=== PATIENT | male | born 1945 | race Caucasian/White ===

== ENCOUNTER 2017-09-25 08:23 | Day surgery (SDC) | payer OTHER ==
[2017-09-25 09:01] VITALS: BMI 28.6
[2017-09-25] MEDS ORDERED: LIDOCAINE HCL/PF 2% SDV 5ML VIAL ONE (09:08)
[2017-09-25] MEDS ORDERED: PROPOFOL 20 ML ONE ×2 (09:08)
[2017-09-25 09:52] VITALS: TEMP 98.2
[2017-09-25 10:34] VITALS: BP 116/80; PULSE 78
--- NOTE | 2017-09-27 09:34 | PATH ---
Surgical Pathology Report Patient Name: HOLLY JOSEPH [facility]. Rec. #: [id number] /Age/Gender: 1945 (Age: 72) / M Account: [id number] Location: [facility]-ENDOSCOPY Taken: 09/25/2017 Received: 09/25/2017 Reported: 09/27/2017 Physicians: Blaise Guzman D.O. Specimen(s) Received HOT SMALL MID TRANSVERSE COLON POLYP Clinical History Screening Postoperative diagnosis: Diverticulosis, mid transverse colon polyps, hemorrhoids Final Diagnosis MID TRANSVERSE COLON, POLYP, BIOPSY: HYPERPLASTIC POLYP. Electronically Signed Judith Rivera M.D. Gross Description Received in formalin, labeled "mid transverse polyp" is a morton, irregular portion of soft tissue measuring 0.3 cm. in greatest dimension. The specimen is submitted in toto in one cassette. /09/25/201709/25/2017
== END 2017-09-25 10:35 | disposition home or self-care (01) ==
LOC: JASU-ENDO 08:23
PROVIDERS: ATTEND Internal Medicine Gastroenterology
PROC: 0DBL8ZX Excision of Transverse Colon, Via Natural or Artificial Opening Endoscopic, Diagnostic (ICD-10-PCS; principal; 2017-09-25 10:30)
DX: Z12.11 Encounter for screening for malignant neoplasm of colon (principal); Z80.0 Family history of malignant neoplasm of digestive organs; K57.30 Diverticulosis of large intestine without perforation or abscess without bleeding; D12.3 Benign neoplasm of transverse colon; K64.8 Other hemorrhoids
CPT/HCPCS: 88305-TC

== ENCOUNTER → 2017-10-02 | Day surgery (SDC) | payer OTHER ==
[~2017-10-02] MED LIST: PROPOFOL 20 ML ONE
[2017-10-02 08:29] VITALS: BMI 28.6
[2017-10-02 10:54] VITALS: TEMP 97.7
[2017-10-02 12:41] VITALS: BP 146/75; PULSE 60
--- NOTE | 2017-10-03 16:14 | PATH ---
Surgical Pathology Report Patient Name: HOLLY JOSEPH [facility]. Rec. #: [id number] /Age/Gender: 1945 (Age: 72) / M Account: [id number] Location: [facility]-ENDOSCOPY Taken: 10/02/2017 Received: 10/02/2017 Reported: 10/03/2017 Physicians: Blaise Guzman D.O. Specimen(s) Received A: BX DUODENUM B: BX GASTRIC POLYP C: BX BODY FUNDUS D: BX GE JUNCTION Clinical History GERD Postoperative diagnosis: Hiatal hernia, gastritis, duodenitis, gastric polyp, duodenal bulb polyp Final Diagnosis A. DUODENAL BULB POLYP, BIOPSY: DUODENAL MUCOSA WITH CHRONIC INFLAMMATION AND KIM'S GLAND HYPERPLASIA. B. GASTRIC POLYP, BIOPSY: GASTRIC MUCOSA WITH ACTIVE CHRONIC GASTRITIS AND LYMPHOID FOLLICLE. 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 C. BODY/FUNDUS, BIOPSY: GASTRIC MUCOSA WITH ACTIVE CHRONIC GASTRITIS AND LYMPHOID AGGREGATE. 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 D. GE JUNCTION, BIOPSY: GASTROESOPHAGEAL JUNCTIONAL MUCOSA SHOWING ACTIVE CHRONIC INFLAMMATION, WITH FEATURES SUGGESTIVE OF REFLUX ESOPHAGITIS. Electronically Signed Sylvie Montoya M.D. Gross Description A. Received in formalin, labeled "biopsy duodenal bulb polyp" is a morton, irregular portion of soft tissue measuring 0.2 cm. in greatest dimension. The specimen is submitted in toto in one cassette. B. Received in formalin, labeled "biopsy gastric polyp" is a morton, irregular portion of soft tissue measuring 0.4 cm. in greatest dimension. The specimen is submitted in toto in one cassette. C. Received in formalin, labeled "biopsy body/fundus" are 4 morton, irregular portions of soft tissue ranging from 0.2-0.5 cm. in greatest dimension. The specimens are submitted in toto in one cassette. D. Received in formalin, labeled "biopsy GE junction" are 3 morton, irregular portions of soft tissue ranging from 0.2-0.4 cm. in greatest dimension. The specimens are submitted in toto in one cassette. 10/02/201710/02/2017
== END | disposition home or self-care (01) ==
LOC: JASU-ENDO 06:20
PROVIDERS: ATTEND Internal Medicine Gastroenterology
PROC: 0DB68ZX Excision of Stomach, Via Natural or Artificial Opening Endoscopic, Diagnostic (ICD-10-PCS; 2017-10-02)
PROC: 0DB28ZX Excision of Middle Esophagus, Via Natural or Artificial Opening Endoscopic, Diagnostic (ICD-10-PCS; 2017-10-02)
PROC: 0DB48ZX Excision of Esophagogastric Junction, Via Natural or Artificial Opening Endoscopic, Diagnostic (ICD-10-PCS; 2017-10-02)
PROC: 0DB98ZX Excision of Duodenum, Via Natural or Artificial Opening Endoscopic, Diagnostic (ICD-10-PCS; principal; 2017-10-02 10:45)
DX: K21.9 Gastro-esophageal reflux disease without esophagitis (principal); K29.70 Gastritis, unspecified, without bleeding; K44.9 Diaphragmatic hernia without obstruction or gangrene; K31.7 Polyp of stomach and duodenum; K29.80 Duodenitis without bleeding
CPT/HCPCS: 82962; 88305-TC; 88342-TC

== ENCOUNTER 2023-04-25 16:00 | Inpatient (IN) | payer OTHER ==
[2023-04-25 18:01] LABS: BASO % 0.2 % (0-2.0); EOS % 1.2 % (0-4.5); HEMATOCRIT 46.6 % (35.4-49); HEMOGLOBIN 15.6 GM/dL (11.7-16.9); LYMPH % 7.1 % (8-40); MCH 30.5 pg (25.7-33.7); MCHC 33.5 g/dl (32.0-35.9); MEAN CELL VOLUME 91.1 fl (80-96); MEAN PLT VOLUME 7.6 fl (7.5-11.1); MONO % 7.5 % (3.8-10.2); PLATELET COUNT 218 10^3/uL (134-434); RBC 5.11 M/mm3 (4.00-5.60); RDW 14.3 % (11.9-15.9); WHITE BLOOD COUNT 7.3 K/mm3 (4.0-10.0)
[2023-04-25 18:08] LABS: EPI CELLS 1 /uL (0-25.1); HYALINE CASTS 0 /uL (0-3.1); PH,URINE 5.5 (5.0-8.0); URINE APPEARANCE CLOUDY; URINE BACTERIA 3 /uL (0-1359); URINE BILIRUBIN NEGATIVE (NEGATIVE); URINE COLOR YELLOW; URINE GLUCOSE (UA) 3+ (NEGATIVE); URINE KETONE NEGATIVE (NEGATIVE); URINE LEUK ESTERASE NEGATIVE (NEGATIVE); URINE NITRITE NEGATIVE (NEGATIVE); URINE PROTEIN NEGATIVE (NEGATIVE); URINE RBC 19 /uL (0-23.9); URINE UROBILINOGEN 0.2 mg/dL (0.2-1.0); URINE WBC 6 /uL (0-25.8)
[2023-04-25 18:11] LABS: INR 1.17 (0.83-1.09); PROTHROMBIN TIME (PATIENT) 13.5 SEC (9.7-13.0)
[2023-04-25 18:14] LABS: ACTIVATED PTT 30.9 SECONDS (25.2-36.5)
[2023-04-25 18:16] LABS: POTASSIUM 3.5 mmol/L (3.5-5.1)
[2023-04-25 18:18] LABS: BLOOD UREA NITROGEN 21.3 mg/dL (7-18); CALCIUM 8.9 mg/dL (8.5-10.1)
[2023-04-25 18:21] LABS: CREATININE 1.1 mg/dL (0.55-1.3)
[2023-04-25 18:23] LABS: BILIRUBIN,TOTAL 0.4 mg/dL (0.2-1); TOT PROT 7.9 g/dl (6.4-8.2)
[2023-04-25] MEDS ORDERED: DOCUSATE SODIUM 100 MG CAPSULE (FP) PO PRN (20:04)
[2023-04-25] MEDS ORDERED: ACETAMINOPHEN 325 MG TABLET (FP) PO PRN (20:04)
[2023-04-25] MEDS ORDERED: REMDESIVIR 200 MG in SODIUM CHLORIDE 250 ML IVPB ONE (20:12)
[2023-04-25] MEDS ORDERED: ACETAMINOPHEN 1000 MG/100 ML BAG IVPB PRN (20:16)
[2023-04-25] MEDS: SODIUM CHLORIDE 1,000 ML IV SCH (20:46)
[2023-04-25] MEDS: INSULIN SLIDING SCALE (NOVOLOG) 1 VIAL SQ SCH (22:36)
[2023-04-26 07:24] LABS: BASO % 0.2 % (0-2.0); EOS % 0.8 % (0-4.5); HEMATOCRIT 42.4 % (35.4-49); HEMOGLOBIN 14.3 GM/dL (11.7-16.9); LYMPH % 12.1 % (8-40); MCHC 33.7 g/dl (32.0-35.9); MEAN PLT VOLUME 7.9 fl (7.5-11.1); MONO % 14.9 % (3.8-10.2); PLATELET COUNT 163 10^3/uL (134-434); RBC 4.61 M/mm3 (4.00-5.60); RDW 14.2 % (11.9-15.9); WHITE BLOOD COUNT 4.7 K/mm3 (4.0-10.0)
[2023-04-26 07:54] LABS: POTASSIUM 3.6 mmol/L (3.5-5.1)
[2023-04-26 08:05] LABS: CALCIUM 8.4 mg/dL (8.5-10.1)
[2023-04-26 08:08] LABS: PHOSPHOROUS 2.8 mg/dL (2.5-4.9)
[2023-04-26 08:09] LABS: CREATININE 0.8 mg/dL (0.55-1.3)
[2023-04-26 08:11] LABS: BLOOD UREA NITROGEN 14.5 mg/dL (7-18)
[2023-04-26] MEDS: INSULIN SLIDING SCALE (NOVOLOG) 1 VIAL SQ SCH ×4 (08:33→23:02)
[2023-04-26] MEDS ORDERED: amLODIPine BESYLATE 5 MG TABLET (FP) PO ONE (10:00)
[2023-04-26] MEDS ORDERED: ESCITALOPRAM OXALATE 10 MG TABLET ONE (10:57)
[2023-04-26] MEDS ORDERED: ENOXAPARIN NA (PORCINE) 40 MG/0.4 ML DISP.SYRIN SQ ONE (10:58)
[2023-04-26] MEDS ORDERED: amLODIPine BESYLATE 5 MG TABLET (FP) ONE (10:58)
[2023-04-26] MEDS: LOSARTAN 50MG/HCTZ 12.5MG 1 TAB PO SCH (11:02)
[2023-04-26] MEDS: ENOXAPARIN NA (PORCINE) 40 MG/0.4 ML DISP.SYRIN SQ SCH (11:02)
[2023-04-26] MEDS: ESCITALOPRAM OXALATE 10 MG TABLET PO SCH (11:02)
[2023-04-26] MEDS ORDERED: ACETAMINOPHEN 325 MG TABLET (FP) ONE (17:36)
[2023-04-26] MEDS ORDERED: ACETAMINOPHEN 325 MG TABLET (FP) PO PRN (20:04)
[2023-04-26] MEDS: SODIUM CHLORIDE 1,000 ML IV SCH (21:15)
[2023-04-26] MEDS ORDERED: ROSUVASTATIN CA 20 MG TABLET ONE (22:50)
[2023-04-26] MEDS: ROSUVASTATIN CA 20 MG TABLET PO SCH (23:01)
[2023-04-27] MEDS: INSULIN SLIDING SCALE (NOVOLOG) 1 VIAL SQ SCH ×4 (08:53→23:45)
[2023-04-27] MEDS: ENOXAPARIN NA (PORCINE) 40 MG/0.4 ML DISP.SYRIN SQ SCH (09:02)
[2023-04-27] MEDS: ESCITALOPRAM OXALATE 10 MG TABLET PO SCH (09:02)
[2023-04-27] MEDS: LOSARTAN 50MG/HCTZ 12.5MG 1 TAB PO SCH (09:02)
[2023-04-27] MEDS ORDERED: REMDESIVIR 200 MG in SODIUM CHLORIDE 250 ML IVPB ONE (13:00)
[2023-04-27] MEDS ORDERED: ALBUTEROL SO4 0.083% IH SOL 2.5 MG/3 ML VIAL.NEB. NEB PRN (15:26)
[2023-04-27] MEDS ORDERED: DEXAMETHASONE SOD PHOSPHATE 10 MG/1 ML VIAL ONE (16:14)
[2023-04-27] MEDS: DEXAMETHASONE SOD PHOSPHATE 10 MG/1 ML VIAL IVPUSH SCH (16:15)
[2023-04-27] MEDS ORDERED: ROSUVASTATIN CA 20 MG TABLET ONE (22:31)
[2023-04-27] MEDS: ROSUVASTATIN CA 20 MG TABLET PO SCH (22:32)
[2023-04-28 02:30] VITALS: BMI 29.2
[2023-04-28] MEDS: INSULIN SLIDING SCALE (NOVOLOG) 1 VIAL SQ SCH ×4 (05:59→21:45)
[2023-04-28] MEDS: DEXAMETHASONE SOD PHOSPHATE 10 MG/1 ML VIAL IVPUSH SCH (09:13)
[2023-04-28] MEDS: ESCITALOPRAM OXALATE 10 MG TABLET PO SCH (09:14)
[2023-04-28] MEDS: ENOXAPARIN NA (PORCINE) 40 MG/0.4 ML DISP.SYRIN SQ SCH (09:14)
[2023-04-28] MEDS: LOSARTAN 50MG/HCTZ 12.5MG 1 TAB PO SCH (09:14)
[2023-04-28 10:41] LABS: BASO % 0.1 % (0-2.0); EOS % 0.1 % (0-4.5); HEMATOCRIT 44.2 % (35.4-49); HEMOGLOBIN 14.6 GM/dL (11.7-16.9); LYMPH % 21.2 % (8-40); MCH 30.1 pg (25.7-33.7); MCHC 33.1 g/dl (32.0-35.9); MEAN CELL VOLUME 90.8 fl (80-96); MEAN PLT VOLUME 7.7 fl (7.5-11.1); MONO % 12.8 % (3.8-10.2); NEUT % 65.8 % (42.8-82.8); PLATELET COUNT 175 10^3/uL (134-434); RBC 4.86 M/mm3 (4.00-5.60); RDW 14.6 % (11.9-15.9); WHITE BLOOD COUNT 3.6 K/mm3 (4.0-10.0)
[2023-04-28 10:53] LABS: POTASSIUM 3.2 mmol/L (3.5-5.1)
[2023-04-28 10:58] LABS: BLOOD UREA NITROGEN 23.7 mg/dL (7-18); CALCIUM 8.6 mg/dL (8.5-10.1); MAGNESIUM 2.2 mg/dL (1.8-2.4)
[2023-04-28 11:01] LABS: CREATININE 0.9 mg/dL (0.55-1.3); PHOSPHOROUS 2.3 mg/dL (2.5-4.9)
[2023-04-28] MEDS: REMDESIVIR 100 MG in SODIUM CHLORIDE 250 ML IVPB SCH (12:21)
[2023-04-28] MEDS: ROSUVASTATIN CA 20 MG TABLET PO SCH (21:46)
[2023-04-29] MEDS: ENOXAPARIN NA (PORCINE) 40 MG/0.4 ML DISP.SYRIN SQ SCH (10:28)
[2023-04-29] MEDS: DEXAMETHASONE SOD PHOSPHATE 10 MG/1 ML VIAL IVPUSH SCH (10:28)
[2023-04-29] MEDS: LOSARTAN 50MG/HCTZ 12.5MG 1 TAB PO SCH (10:29)
[2023-04-29] MEDS: REMDESIVIR 100 MG in SODIUM CHLORIDE 250 ML IVPB SCH (10:31)
[2023-04-29] MEDS: ESCITALOPRAM OXALATE 10 MG TABLET PO SCH (10:31)
[2023-04-29] MEDS: INSULIN SLIDING SCALE (NOVOLOG) 1 VIAL SQ SCH ×4 (10:53→21:15)
[2023-04-29] MEDS: ROSUVASTATIN CA 20 MG TABLET PO SCH (21:15)
[2023-04-30] MEDS: INSULIN SLIDING SCALE (NOVOLOG) 1 VIAL SQ SCH ×4 (06:36→22:09)
[2023-04-30 10:12] LABS: HEMATOCRIT 43.5 % (35.4-49); HEMOGLOBIN 14.5 GM/dL (11.7-16.9); MCH 30.2 pg (25.7-33.7); MCHC 33.3 g/dl (32.0-35.9); MEAN CELL VOLUME 90.5 fl (80-96); MEAN PLT VOLUME 7.6 fl (7.5-11.1); PLATELET COUNT 164 10^3/uL (134-434); RDW 14.3 % (11.9-15.9)
[2023-04-30] MEDS: LOSARTAN 50MG/HCTZ 12.5MG 1 TAB PO SCH (10:21)
[2023-04-30] MEDS: ESCITALOPRAM OXALATE 10 MG TABLET PO SCH (10:22)
[2023-04-30] MEDS: REMDESIVIR 100 MG in SODIUM CHLORIDE 250 ML IVPB SCH (10:22)
[2023-04-30] MEDS: DEXAMETHASONE SOD PHOSPHATE 10 MG/1 ML VIAL IVPUSH SCH (10:22)
[2023-04-30] MEDS: ENOXAPARIN NA (PORCINE) 40 MG/0.4 ML DISP.SYRIN SQ SCH (10:23)
[2023-04-30 10:38] LABS: POTASSIUM 3.5 mmol/L (3.5-5.1)
[2023-04-30 10:48] LABS: BLOOD UREA NITROGEN 19.2 mg/dL (7-18); CALCIUM 8.9 mg/dL (8.5-10.1)
[2023-04-30 10:49] LABS: MAGNESIUM 2.4 mg/dL (1.8-2.4)
[2023-04-30 10:51] LABS: CREATININE 0.7 mg/dL (0.55-1.3)
[2023-04-30 10:53] LABS: BILIRUBIN,TOTAL 0.4 mg/dL (0.2-1); TOT PROT 6.2 g/dl (6.4-8.2)
[2023-04-30 11:06] LABS: ALBUMIN 2.9 g/dl (3.4-5.0)
[2023-04-30] MEDS: ROSUVASTATIN CA 20 MG TABLET PO SCH (22:05)
[2023-05-01] MEDS ORDERED: DOCUSATE SODIUM 100 MG CAPSULE (FP) PO PRN (01:49)
[2023-05-01] MEDS: INSULIN SLIDING SCALE (NOVOLOG) 1 VIAL SQ SCH ×4 (06:22→21:40)
[2023-05-01] MEDS ORDERED: REMDESIVIR 100 MG in SODIUM CHLORIDE 250 ML IVPB SCH (10:00)
[2023-05-01] MEDS: ESCITALOPRAM OXALATE 10 MG TABLET PO SCH (10:15)
[2023-05-01] MEDS: ENOXAPARIN NA (PORCINE) 40 MG/0.4 ML DISP.SYRIN SQ SCH (10:15)
[2023-05-01] MEDS: LOSARTAN 50MG/HCTZ 12.5MG 1 TAB PO SCH (10:16)
[2023-05-01] MEDS: DEXAMETHASONE SOD PHOSPHATE 10 MG/1 ML VIAL IVPUSH SCH (10:16)
[2023-05-01] MEDS: ROSUVASTATIN CA 20 MG TABLET PO SCH (21:36)
[2023-05-02] MEDS: INSULIN SLIDING SCALE (NOVOLOG) 1 VIAL SQ SCH ×4 (06:13→21:51)
[2023-05-02] MEDS: LOSARTAN 50MG/HCTZ 12.5MG 1 TAB PO SCH (11:04)
[2023-05-02] MEDS: ESCITALOPRAM OXALATE 10 MG TABLET PO SCH (11:05)
[2023-05-02] MEDS: DEXAMETHASONE SOD PHOSPHATE 10 MG/1 ML VIAL IVPUSH SCH (11:05)
[2023-05-02] MEDS: ENOXAPARIN NA (PORCINE) 40 MG/0.4 ML DISP.SYRIN SQ SCH (11:11)
[2023-05-02] MEDS: ROSUVASTATIN CA 20 MG TABLET PO SCH (21:47)
[2023-05-03] MEDS: INSULIN SLIDING SCALE (NOVOLOG) 1 VIAL SQ SCH ×4 (06:24→22:17)
[2023-05-03] MEDS ORDERED: INSULIN SLIDING SCALE (NOVOLOG) 1 VIAL SQ ONE (07:50)
[2023-05-03] MEDS: ESCITALOPRAM OXALATE 10 MG TABLET PO SCH (09:09)
[2023-05-03] MEDS: ENOXAPARIN NA (PORCINE) 40 MG/0.4 ML DISP.SYRIN SQ SCH (09:09)
[2023-05-03] MEDS: LOSARTAN 50MG/HCTZ 12.5MG 1 TAB PO SCH (09:10)
[2023-05-03] MEDS: ACETAMINOPHEN 325 MG TABLET (FP) PO PRN (09:10)
[2023-05-03] MEDS: ROSUVASTATIN CA 20 MG TABLET PO SCH (22:16)
[2023-05-04] MEDS: INSULIN SLIDING SCALE (NOVOLOG) 1 VIAL SQ SCH ×4 (06:38→21:26)
[2023-05-04] MEDS: LOSARTAN 50MG/HCTZ 12.5MG 1 TAB PO SCH (10:04)
[2023-05-04] MEDS: ENOXAPARIN NA (PORCINE) 40 MG/0.4 ML DISP.SYRIN SQ SCH (10:04)
[2023-05-04] MEDS: ESCITALOPRAM OXALATE 10 MG TABLET PO SCH (10:04)
[2023-05-04] MEDS: ACETAMINOPHEN 325 MG TABLET (FP) PO PRN (10:04)
[2023-05-04] MEDS: ROSUVASTATIN CA 20 MG TABLET PO SCH (21:23)
[2023-05-05] MEDS: INSULIN SLIDING SCALE (NOVOLOG) 1 VIAL SQ SCH ×4 (06:13→21:20)
[2023-05-05] MEDS: ESCITALOPRAM OXALATE 10 MG TABLET PO SCH (09:11)
[2023-05-05] MEDS: LOSARTAN 50MG/HCTZ 12.5MG 1 TAB PO SCH (09:11)
[2023-05-05] MEDS: ENOXAPARIN NA (PORCINE) 40 MG/0.4 ML DISP.SYRIN SQ SCH (09:11)
[2023-05-05 14:44] VITALS: RESP 18
[2023-05-05] MEDS ORDERED: INSULIN SLIDING SCALE (NOVOLOG) 1 VIAL SQ ONE (16:33)
[2023-05-05] MEDS: ROSUVASTATIN CA 20 MG TABLET PO SCH (21:15)
[2023-05-06] MEDS: INSULIN SLIDING SCALE (NOVOLOG) 1 VIAL SQ SCH ×4 (06:22→21:36)
[2023-05-06] MEDS: ENOXAPARIN NA (PORCINE) 40 MG/0.4 ML DISP.SYRIN SQ SCH (09:20)
[2023-05-06] MEDS: ESCITALOPRAM OXALATE 10 MG TABLET PO SCH (09:20)
[2023-05-06] MEDS: LOSARTAN 50MG/HCTZ 12.5MG 1 TAB PO SCH (09:20)
[2023-05-06] MEDS ORDERED: INSULIN SLIDING SCALE (NOVOLOG) 1 VIAL SQ ONE (10:54)
[2023-05-06] MEDS: ROSUVASTATIN CA 20 MG TABLET PO SCH (21:31)
[2023-05-07] MEDS: INSULIN SLIDING SCALE (NOVOLOG) 1 VIAL SQ SCH ×4 (06:07→21:20)
[2023-05-07] MEDS: ENOXAPARIN NA (PORCINE) 40 MG/0.4 ML DISP.SYRIN SQ SCH (09:51)
[2023-05-07] MEDS: ESCITALOPRAM OXALATE 10 MG TABLET PO SCH (09:51)
[2023-05-07] MEDS: LOSARTAN 50MG/HCTZ 12.5MG 1 TAB PO SCH (09:52)
[2023-05-07] MEDS: ROSUVASTATIN CA 20 MG TABLET PO SCH (21:20)
[2023-05-08] MEDS: INSULIN SLIDING SCALE (NOVOLOG) 1 VIAL SQ SCH ×3 (06:46→17:08)
[2023-05-08] MEDS: LOSARTAN 50MG/HCTZ 12.5MG 1 TAB PO SCH (10:32)
[2023-05-08] MEDS: ESCITALOPRAM OXALATE 10 MG TABLET PO SCH (10:32)
[2023-05-08] MEDS: ENOXAPARIN NA (PORCINE) 40 MG/0.4 ML DISP.SYRIN SQ SCH (10:32)
[2023-05-08 16:07] VITALS: BP 119/57; TEMP 98.1
[2023-05-08 16:12] VITALS: PULSE 75
== END 2023-05-08 18:00 | DRG 179 ==
LOC: JER 16:00 → JERBED 04-26 20:03 → OBSVTOIN 04-27 15:20 → J6S 04-27 23:27
PROVIDERS: ADMIT Internal Medicine; ATTEND Family Medicine
PROC: XW033E5 Introduction of Remdesivir Anti-infective into Peripheral Vein, Percutaneous Approach, New Technology Group 5 (ICD-10-PCS; principal; 2023-04-27)
DX: U07.1 COVID-19 (principal); G20.A1 Parkinson's disease without dyskinesia, without mention of fluctuations; I10 Essential (primary) hypertension; E11.9 Type 2 diabetes mellitus without complications; F03.90 Unspecified dementia, unspecified severity, without behavioral disturbance, psychotic disturbance, mood disturbance, and anxiety; R09.02 Hypoxemia; E78.5 Hyperlipidemia, unspecified
CPT/HCPCS: 0241U-QW; 36415; 70450-TC; 71045-TC-FY; 80048; 80053; 81003; 82728; 82962; 83615; 83735; 84100; 84443; 84484; 85025; 85027; 85610; 85730; 86140; 87086; 87635; 93005; 93010; 97116-GP; 99285-25; G0378; J0248; J1100

== ENCOUNTER 2023-09-18 13:25 | Emergency (ER) | payer OTHER ==
[2023-09-18 13:37] VITALS: TEMP 98.3
[2023-09-18 14:02] VITALS: BMI 31.4
[2023-09-18 14:21] LABS: BASO % 0.5 % (0-2.0); EOS % 4.6 % (0-4.5); HEMATOCRIT 43.9 % (35.4-49); HEMOGLOBIN 14.3 GM/dL (11.7-16.9); LYMPH % 29.8 % (8-40); MCH 30.1 pg (25.7-33.7); MCHC 32.7 g/dl (32.0-35.9); MEAN CELL VOLUME 92.2 fl (80-96); MEAN PLT VOLUME 7.6 fl (7.5-11.1); MONO % 9.4 % (3.8-10.2); NEUT % 55.7 % (42.8-82.8); PLATELET COUNT 183 10^3/uL (134-434); RBC 4.76 M/mm3 (4.00-5.60); WHITE BLOOD COUNT 5.1 K/mm3 (4.0-10.0)
[2023-09-18 14:28] LABS: INR 1.1 (0.83-1.09); PROTHROMBIN TIME (PATIENT) 12.4 SEC (9.7-13.0)
[2023-09-18 14:42] LABS: POTASSIUM 3.4 mmol/L (3.5-5.1)
[2023-09-18 14:44] LABS: ALBUMIN 3.4 g/dl (3.4-5.0); CALCIUM 8.6 mg/dL (8.5-10.1)
[2023-09-18 14:46] LABS: BLOOD UREA NITROGEN 22.6 mg/dL (7-18)
[2023-09-18 14:47] LABS: CREATININE 1.2 mg/dL (0.55-1.3)
[2023-09-18 14:49] LABS: TOT PROT 6.7 g/dl (6.4-8.2)
[2023-09-18 14:50] LABS: BILIRUBIN,TOTAL 0.4 mg/dL (0.2-1)
[2023-09-18 16:32] LABS: URINE APPEARANCE CLEAR; URINE BILIRUBIN NEGATIVE (NEGATIVE); URINE COLOR YELLOW; URINE GLUCOSE (UA) 3+ (NEGATIVE); URINE KETONE NEGATIVE (NEGATIVE); URINE LEUK ESTERASE NEGATIVE (NEGATIVE); URINE NITRITE NEGATIVE (NEGATIVE); URINE PROTEIN NEGATIVE (NEGATIVE); URINE UROBILINOGEN 0.2 mg/dL (0.2-1.0)
[2023-09-18 17:30] VITALS: BP 130/64; PULSE 57; RESP 19
== END 2023-09-18 17:32 | disposition home or self-care (01) ==
LOC: JER 13:25
DX: I69.351 Hemiplegia and hemiparesis following cerebral infarction affecting right dominant side (principal); R26.81 Unsteadiness on feet
CPT/HCPCS: 36415; 70450-TC; 80053; 80061; 81003; 82550; 82962; 83036; 84484; 85025; 85610; 85730; 86850; 86900; 86901; 93005; 93010; 99285-25

== ENCOUNTER 2024-02-05 10:46 | Inpatient (IN) | payer OTHER ==
[2024-02-05 11:16] VITALS: BMI 31.8
[2024-02-05 13:04] LABS: BASO % 0.3 % (0-2.0); EOS % 1.7 % (0-4.5); HEMATOCRIT 43.4 % (35.4-49); HEMOGLOBIN 14.6 GM/dL (11.7-16.9); LYMPH % 13.5 % (8-40); MCHC 33.7 g/dl (32.0-35.9); MEAN CELL VOLUME 92.2 fl (80-96); MEAN PLT VOLUME 7.1 fl (7.5-11.1); MONO % 8.5 % (3.8-10.2); PLATELET COUNT 193 10^3/uL (134-434); RBC 4.71 M/mm3 (4.00-5.60); RDW 14.4 % (11.9-15.9); WHITE BLOOD COUNT 5.8 K/mm3 (4.0-10.0)
[2024-02-05 13:28] LABS: POTASSIUM 3.4 mmol/L (3.5-5.1)
[2024-02-05 13:32] LABS: ALBUMIN 3.5 g/dl (3.4-5.0); BLOOD UREA NITROGEN 10.1 mg/dL (7-18); MAGNESIUM 2.1 mg/dL (1.8-2.4)
[2024-02-05 13:35] LABS: CREATININE 0.8 mg/dL (0.55-1.3)
[2024-02-05 13:36] LABS: BILIRUBIN,TOTAL 0.6 mg/dL (0.2-1)
[2024-02-05 13:37] LABS: TOT PROT 6.9 g/dl (6.4-8.2)
[2024-02-05] MEDS ORDERED: POTASSIUM CHLORIDE TABS 20 MEQ TABLET.ER (FP) PO ONE (16:48)
[2024-02-05] MEDS: POTASSIUM CHLORIDE TABS 20 MEQ TABLET.ER (FP) PO ONE (16:52)
[2024-02-05 17:23] LABS: EPI CELLS 2 /uL (0-25.1); HYALINE CASTS 0 /uL (0-3.1); URINE APPEARANCE CLEAR; URINE BACTERIA 6 /uL (0-1359); URINE BILIRUBIN NEGATIVE (NEGATIVE); URINE COLOR YELLOW; URINE GLUCOSE (UA) 3+ (NEGATIVE); URINE KETONE TRACE (NEGATIVE); URINE LEUK ESTERASE NEGATIVE (NEGATIVE); URINE NITRITE NEGATIVE (NEGATIVE); URINE PROTEIN 1+ (NEGATIVE); URINE RBC 49 /uL (0-23.9); URINE UROBILINOGEN 0.2 mg/dL (0.2-1.0); URINE WBC 2 /uL (0-25.8)
[2024-02-06] MEDS: METOPROLOL TARTRATE 25 MG TABLET (FP) PO SCH (09:10)
[2024-02-06] MEDS: LOSARTAN POTASSIUM 50 MG TABLET PO SCH (09:10)
[2024-02-06 10:47] LABS: BASO % 0.2 % (0-2.0); EOS % 4.4 % (0-4.5); HEMATOCRIT 44.1 % (35.4-49); LYMPH % 14.4 % (8-40); MCH 31.4 pg (25.7-33.7); MCHC 34.1 g/dl (32.0-35.9); MEAN CELL VOLUME 92.1 fl (80-96); MEAN PLT VOLUME 7.5 fl (7.5-11.1); MONO % 8.9 % (3.8-10.2); NEUT % 72.1 % (42.8-82.8); PLATELET COUNT 189 10^3/uL (134-434); RBC 4.78 M/mm3 (4.00-5.60); RDW 14.4 % (11.9-15.9); WHITE BLOOD COUNT 5.8 K/mm3 (4.0-10.0)
[2024-02-06 11:13] LABS: POTASSIUM 3.5 mmol/L (3.5-5.1)
[2024-02-06 11:19] LABS: CALCIUM 8.8 mg/dL (8.5-10.1)
[2024-02-06 11:20] LABS: ALBUMIN 3.5 g/dl (3.4-5.0); BLOOD UREA NITROGEN 13.4 mg/dL (7-18); MAGNESIUM 2.2 mg/dL (1.8-2.4)
[2024-02-06 11:23] LABS: CREATININE 0.7 mg/dL (0.55-1.3)
[2024-02-06 11:24] LABS: BILIRUBIN,TOTAL 0.5 mg/dL (0.2-1); TOT PROT 6.9 g/dl (6.4-8.2)
[2024-02-07] MEDS: EMPAGLIFLOZIN (JARDIANCE) 25 MG TABLET PO SCH (06:28)
[2024-02-07] MEDS: ESCITALOPRAM OXALATE 10 MG TABLET PO SCH (09:27)
[2024-02-10] MEDS: ACETAMINOPHEN 500 MG TABLET (FP) PO ONE (21:40)
[2024-02-10] MEDS: MELATONIN 5 MG TABLETS PO PRN (22:29)
[2024-02-11 15:33] VITALS: BP 146/71; PULSE 91; RESP 18; TEMP 97.5
[2024-02-11] MEDS ORDERED: INSULIN ASPART SLIDING SCALE (NOVOLOG) 1 VIAL SQ SCH (16:30)
== END 2024-02-11 17:37 | DRG 57 ==
LOC: JER 10:46 → JERBED 15:51 → J6S 02-06 01:21
PROVIDERS: ADMIT Internal Medicine; ATTEND Internal Medicine
DX: G20.A1 Parkinson's disease without dyskinesia, without mention of fluctuations (principal); I69.351 Hemiplegia and hemiparesis following cerebral infarction affecting right dominant side; N40.0 Benign prostatic hyperplasia without lower urinary tract symptoms; E11.9 Type 2 diabetes mellitus without complications; I45.19 Other right bundle-branch block; F02.80 Dementia in other diseases classified elsewhere, unspecified severity, without behavioral disturbance, psychotic disturbance, mood disturbance, and anxiety; E78.5 Hyperlipidemia, unspecified; I10 Essential (primary) hypertension; R29.6 Repeated falls; J84.10 Pulmonary fibrosis, unspecified; R53.1 Weakness; W06.XXXA Fall from bed, initial encounter; Y92.092 Bedroom in other non-institutional residence as the place of occurrence of the external cause; Y99.9 Unspecified external cause status
CPT/HCPCS: 0241U-QW; 36415; 70450-TC; 71045-TC-FY; 72125-TC; 80053; 81003; 82607; 82962; 83735; 84100; 84443; 84484; 85025; 86780; 87086; 93005; 93010; 97116-GP; 97162-GP; 99285-25

== ENCOUNTER 2024-08-07 17:25 | Inpatient (IN) | payer OTHER ==
[2024-08-07 19:25] LABS: ABSOLUTE IMMATURE GRANULOCYTES 0.04 x10^3/uL (0.0-0.031); BASOPHILS # 0.02 x10^3/uL (0.01-0.08); EOSINOPHIL % 3.2 % (0.8-7.0); EOSINOPHILS # 0.23 x10^3/uL (0.04-0.54); HEMATOCRIT 48.2 % (40.1-51.0); HEMOGLOBIN 15.4 g/dL (13.7-17.5); MEAN CELL VOLUME 95.3 fl (79.0-92.2); MEAN PLT VOLUME 9.3 fl (9.4-12.4); MONOCYTE # 0.83 x10^3/uL (0.30-0.82); MONOCYTE % 11.4 % (5.3-12.2); PLATELET COUNT 171 x10^3/uL (163-337); RDW 14.1 % (12.2-16.6)
[2024-08-07 19:36] LABS: INR 1.17 (0.83-1.09); PROTHROMBIN TIME (PATIENT) 12.7 SEC (9.7-13.0)
[2024-08-07 19:43] LABS: POTASSIUM 3.4 mmol/L (3.5-5.1)
[2024-08-07 19:46] LABS: CALCIUM 9.2 mg/dL (8.5-10.1)
[2024-08-07 19:47] LABS: ALBUMIN 3.7 g/dl (3.4-5.0); BLOOD UREA NITROGEN 17.3 mg/dL (7-18); MAGNESIUM 2.4 mg/dL (1.8-2.4)
[2024-08-07 19:50] LABS: CREATININE 1.1 mg/dL (0.55-1.3); PHOSPHOROUS 4.6 mg/dL (2.5-4.9)
[2024-08-07 19:51] LABS: BILIRUBIN,TOTAL 0.5 mg/dL (0.2-1); TOT PROT 7.1 g/dl (6.4-8.2)
[2024-08-07 20:24] LABS: EPI CELLS 13 /uL (0-25.1); HYALINE CASTS 0 /uL (0-3.1); PH,URINE 5.5 (5.0-8.0); URINE APPEARANCE Clear; URINE BACTERIA 6 /uL (0-1359); URINE BILIRUBIN Negative (NEGATIVE); URINE COLOR Yellow; URINE GLUCOSE (UA) >=1000 (NEGATIVE); URINE KETONE Trace (NEGATIVE); URINE LEUK ESTERASE Negative (NEGATIVE); URINE NITRITE Negative (NEGATIVE); URINE PROTEIN TRACE (NEGATIVE); URINE RBC 79 /uL (0-23.9); URINE UROBILINOGEN 0.2 mg/dL (0.2-1.0); URINE WBC 11 /uL (0-25.8)
[2024-08-07] MEDS ORDERED: DEXAMETHASONE SOD PHOSPHATE 10 MG/1 ML VIAL ONE (21:16)
[2024-08-07] MEDS: DEXAMETHASONE SOD PHOSPHATE 10 MG/1 ML VIAL IVPUSH ONE (21:30)
[2024-08-08] MEDS: POTASSIUM CHLORIDE ORAL LIQUID 20 MEQ/15 ML PO ONE (01:16)
[2024-08-08] MEDS: REMDESIVIR 200 MG in SODIUM CHLORIDE 250 ML IVPB ONE ×2 (01:16→17:15)
[2024-08-08] MEDS: metFORMIN HCL 500 MG TABLET (FP) PO SCH (06:45)
[2024-08-08 06:52] VITALS: BMI 28.5
[2024-08-08 08:07] LABS: ABSOLUTE IMMATURE GRANULOCYTES 0.03 x10^3/uL (0.0-0.031); BASOPHILS # 0.01 x10^3/uL (0.01-0.08); HEMATOCRIT 46.8 % (40.1-51.0); HEMOGLOBIN 15.1 g/dL (13.7-17.5); MCHC 32.3 g/dl (32.3-36.5); MEAN CELL VOLUME 94.2 fl (79.0-92.2); MEAN PLT VOLUME 9.4 fl (9.4-12.4); MONOCYTE # 0.18 x10^3/uL (0.30-0.82); MONOCYTE % 2.8 % (5.3-12.2); PLATELET COUNT 179 x10^3/uL (163-337); RDW 13.7 % (12.2-16.6)
[2024-08-08 08:39] LABS: POTASSIUM 3.6 mmol/L (3.5-5.1)
[2024-08-08 08:44] LABS: BLOOD UREA NITROGEN 19.4 mg/dL (7-18); CALCIUM 8.9 mg/dL (8.5-10.1)
[2024-08-08 08:47] LABS: CREATININE 0.7 mg/dL (0.55-1.3)
[2024-08-08] MEDS: DEXAMETHASONE SOD PHOSPHATE 10 MG/1 ML VIAL IVPUSH SCH (10:00)
[2024-08-08] MEDS: ESCITALOPRAM OXALATE 10 MG TABLET PO SCH (10:44)
[2024-08-08] MEDS: amLODIPine BESYLATE 5 MG TABLET (FP) PO SCH (10:44)
[2024-08-08] MEDS: SODIUM CHLORIDE 0.45%/POT 20 MEQ/1,000 ML INFUS.BAG IV SCH (13:10)
[2024-08-08] MEDS: ROSUVASTATIN CA 20 MG TABLET PO SCH (21:49)
[2024-08-09 09:09] LABS: HEMATOCRIT 45.8 % (40.1-51.0); HEMOGLOBIN 14.9 g/dL (13.7-17.5); MCHC 32.5 g/dl (32.3-36.5); MEAN CELL VOLUME 93.7 fl (79.0-92.2); MEAN PLT VOLUME 10.2 fl (9.4-12.4); PLATELET COUNT 188 x10^3/uL (163-337); RDW 13.8 % (12.2-16.6)
[2024-08-09 09:27] LABS: POTASSIUM 3.8 mmol/L (3.5-5.1)
[2024-08-09 09:31] LABS: BLOOD UREA NITROGEN 32.1 mg/dL (7-18); MAGNESIUM 2.2 mg/dL (1.8-2.4)
[2024-08-09 09:34] LABS: CALCIUM 8.6 mg/dL (8.5-10.1); CREATININE 0.7 mg/dL (0.55-1.3)
[2024-08-09] MEDS: REMDESIVIR 100 MG in SODIUM CHLORIDE 250 ML IVPB SCH (13:01)
[2024-08-12 08:32] LABS: CALCIUM 8.5 mg/dL (8.5-10.1)
[2024-08-12 08:33] LABS: ALBUMIN 3.1 g/dl (3.4-5.0)
[2024-08-12 08:36] LABS: CREATININE 0.7 mg/dL (0.55-1.3)
[2024-08-12 08:37] LABS: BILIRUBIN,TOTAL 0.4 mg/dL (0.2-1); TOT PROT 6.3 g/dl (6.4-8.2)
[2024-08-13] MEDS: AMINO ACIDS/PROTEIN HYDROLYS 30 ML LIQUID.PKT PO SCH (09:45)
[2024-08-14 06:59] VITALS: RESP 18
[2024-08-14 14:27] VITALS: BP 115/58; PULSE 69; TEMP 97.7
== END 2024-08-14 18:01 | DRG 179 ==
LOC: JER 17:25 → JERBED 21:07 → J7W 23:02 → OBSVTOIN 08-10 12:53
PROVIDERS: ADMIT Internal Medicine; ATTEND Family Medicine
PROC: XW033E5 Introduction of Remdesivir Anti-infective into Peripheral Vein, Percutaneous Approach, New Technology Group 5 (ICD-10-PCS; principal; 2024-08-10)
DX: U07.1 COVID-19 (principal); F03.90 Unspecified dementia, unspecified severity, without behavioral disturbance, psychotic disturbance, mood disturbance, and anxiety; G20.A1 Parkinson's disease without dyskinesia, without mention of fluctuations; I10 Essential (primary) hypertension; E11.9 Type 2 diabetes mellitus without complications; D64.9 Anemia, unspecified; R09.02 Hypoxemia; J84.10 Pulmonary fibrosis, unspecified; E78.5 Hyperlipidemia, unspecified
CPT/HCPCS: 0241U-QW; 36415; 71045-TC-FY; 72170-TC-FY; 73521-TC-FY; 80048; 80053; 81003; 82550; 82962; 83735; 84100; 84443; 84484; 85025; 85027; 85610; 85730; 86850; 86900; 86901; 87086; 93005; 93010; 97116-GP; 97161-GP; 99285-25; G0378; J0248; J1100; J3480